=== PATIENT | female | born 1940 | race Caucasian/White ===

== ENCOUNTER → 2017-08-01 | Outpatient (CLI) | payer MEDICARE, BC ==
[~2017-08-01] MED LIST: COLACE50 MG PO; FERROUS SU325 MG/TAB PO; FOLIC ACID 40400 MCG PO; HCTZ 25MG TAB25 MG PO; LOPRESSOR HCT 21 TAB PO; LOPRESSOR100 MG PO; MOBIC15 MG PO; NORVASC 10MG10 MG PO; PSYLLIUM HUSK1 CAP PO; ULTRAM 50MG TAB50 MG; VITAMIN C500 MG PO
== END ==
LOC: MC.RAD 09:40
DX: Z12.31 Encounter for screening mammogram for malignant neoplasm of breast (principal); N60.02 Solitary cyst of left breast; R92.1 Mammographic calcification found on diagnostic imaging of breast; Z98.890 Other specified postprocedural states

== ENCOUNTER 2020-02-04 23:46 | Emergency (ER) | payer MEDICARE, BC ==
[~2020-02-04] VITALS: Ht 160 cm; Wt 93.2 kg
[2020-02-04 23:56] VITALS: TEMP 97.8
[2020-02-05 00:41] LABS: BASO # 0.1 (0.0-0.2); BASO % 0.9 % (0.0-2.0); EOS # 0.2 (0.0-0.7); EOS % 3.5 % (0-4.0); GRAN # 4.3 (1.4-6.5); HEMOGLOBIN 13.7 g/dl (12.5-16.0); LYMPH # 1.9 (1.2-3.4); LYMPH % 26.7 % (20.0-51.0); MEAN CELL VOLUME 85 fl (80.0-100.0); MEAN CORPUSCULAR HEMOGLOBIN 28 pg (27.0-31.0); MEAN CORPUSCULAR HGB CONC 33 g/dl (33.0-37.0); MEAN PLATELET VOLUME 10.3 fl (7.4-10.4); MONO # 0.5 (0.1-0.6); MONO % 6.8 % (1.7-9.3); PLATELET COUNT 269 K/mm3 (130-400); RED BLOOD COUNT 4.82 M/mm3 (4.10-5.30); REDCELL DISTRIBUTION WIDTH-CV 12.7 % (11.5-14.5)
[2020-02-05 00:47] LABS: ALANINE AMINOTRANSFERASE 17 U/L (4-34); ALBUMIN 4.3 gm/dL (3.5-5.0); ALKALINE PHOSPHATASE 119 U/L (50-136); ANION GAP 10 mmol/L (7-16); AST,SGOT 27 U/L (15-37); BILIRUBIN,TOTAL 0.4 mg/dL (0.0-1.0); BLOOD UREA NITROGEN 27 mg/dL (7-17); CALCIUM 9.3 mg/dL (8.4-10.2); CARBON DIOXIDE 28 mmol/L (22-30); CHLORIDE 103 mmol/L (98-107); GLUCOSE 104 mg/dL (74-106); POTASSIUM 3.7 mmol/L (3.4-5.0); SODIUM 141 mmol/L (137-145); TOTAL PROTEIN 7.2 gm/dL (6.4-8.2)
[2020-02-05 01:01] LABS: TROPONIN-I < 0.012 ng/mL (0.000-0.035)
[2020-02-05 04:33] VITALS: BP 189/114; PULSE 90
== END 2020-02-05 04:35 | disposition home or self-care (01) ==
LOC: COL.ER 23:46
PROVIDERS: Emergency Medicine
DX: R07.89 Other chest pain (principal); I10 Essential (primary) hypertension; Z90.710 Acquired absence of both cervix and uterus; Z96.651 Presence of right artificial knee joint
CPT/HCPCS: J1885

== ENCOUNTER → 2020-02-18 | Outpatient (CLI) | payer MEDICARE, BC | LOC: COL.RAD 10:02 | DX: R10.11 Right upper quadrant pain (principal); R07.89 Other chest pain ==